=== PATIENT | female | born 1970 | race Caucasian/White ===

== ENCOUNTER → 2018-07-21 | Outpatient (REF) ==
--- NOTE | 2018-07-22 03:29 | REP ---
Clinical: Pain and disability. Technique: AP, lateral, coned-down views of the lumbosacral spine. Findings: Alignment and lordosis maintained. No acute fracture / compression injury or subluxation. Moderate multilevel degenerative changes include endplate sclerosis, marginal spurring, and hypertrophic facet changes. Impression: Mild/moderate multilevel degenerative changes. Electronically Signed by Driss Bae MD 07/22/2018 03:20 A
--- NOTE | 2018-07-22 03:38 | REP ---
Clinical: Pain. Technique: Internal rotation, external rotation, and Y view of the right shoulder. Findings: Mild cortical irregularity at the acromioclavicular joint is appreciated along with subtle blunting of the ossified glenoid rim. The subacromial space is within normal limits. Small calcification adjacent to the humeral head identified on the internal rotation. Surrounding soft tissues normal. Impression: Mild arthritic changes including possible calcific tendinopathy. Electronically Signed by Driss Bae MD 07/22/2018 03:29 A
== END ==
LOC: M SMT 13:14
PROVIDERS: ATTEND Internal Medicine
DX: Z02.89 Encounter for other administrative examinations (principal)